=== PATIENT | female | born 1960 | race Caucasian/White ===

== ENCOUNTER 2017-09-22 13:28 | Inpatient (IN) | payer OTHER ==
[~2017-09-22] VITALS: Ht 172.7 cm; Wt 85.3 kg
--- OUTSIDE RECORDS SUMMARY | ~2017-09-22 | XMS | Encounter Summary ---
Demographics + + + | Address | [address] | | | [place] [address] | + + + | Home Phone | | + + + | Preferred Language | Unknown | + + + | Marital Status | | + + + | Zoroastrianism Affiliation | Unknown | + + + | Race | White | + + + | Ethnic Group | Not or | + + + Author + + + | Author | [facility] | + + + | Organization | [facility] | + + + | Address | Unknown | + + + | Phone | Unavailable | + + + Support +------+ + + + | Name | Relationship | Address | Phone | +------+ + + + ECON | [place] | | +------+ + + + Care Team Providers + +------+ + | Care Electronic Masking System Operator Name | Role | Phone | + [...] CH16[facility] | | | | | | [facility] | | | | | | and [facility], [address] | | | | | | [place], [place] | | | | | | [address] | | | | | | [phone] | | | +--------+ + + + [...] | | [facility] Mailcode CH5[facility] [address] | | | [place] [address] | + + + in this encounter Visit Diagnoses + + | Diagnosis | + + | Other specified dermatitis (CODE) | + + Admitting Diagnoses + + | Diagnosis | + + | Neoplasm of uncertain behavior of skin | + +
--- OUTSIDE RECORDS SUMMARY | ~2017-09-22 | XMS | Clinical Summary ---
Demographics + + + | Address | [address] | | | [place] [address] | + + + | Home Phone | | + + + | Preferred Language | Unknown | + + + | Marital Status | | + + + | Adventism Affiliation | Unknown | + + + | Race | White | + + + | Ethnic Group | Not or | + + + Author + + + | Author | [facility] | + + + | Organization | [facility] | + + + | Address | Unknown | + + + | Phone | Unavailable | + + + Support +------+ + + + | Name | Relationship | Address | Phone | +------+ + + + ECON | [place] | | +------+ + + + Care Team Providers + +------+ + | Care Crewman Main Battle Tank Name | Role | Phone | + +------+ + PP | Unavailable | + +------+ + Source Comments LEON is fully live on both [facility] Amb[facility] and [facility] InPatient.[facility] Allergies Not on File Current Medications [...] | | [facility] [address] | | | [place] [address] | + + + from Last 3 Months
[~2017-09-22 13:28] MED LIST: AMLODIPINE BESYL5 MG PO; DYAZIDE 37.5-251 EA PO; HYDROCHLOROTH12.5 MG PO; LOSARTAN POTASS25 MG PO; OMEPRAZOLE40 MG PO; TRANSDERM-SCOP1 EA TD
[2017-09-22] MEDS ORDERED: METOPROLOL SUCC50 MG PO (13:54)
[2017-09-22] MEDS ORDERED: AZITHROMYCIN500 MG PO (13:56)
--- OUTSIDE RECORDS SUMMARY | 2017-09-22 14:10 | XMS | Clinical Summary ---
Demographics + + + | Address | [address] | | | [place] [address] | + + + | Home Phone | | + + + | Preferred Language | Unknown | + + + | Marital Status | | + + + | Mormonism Affiliation | Unknown | + + + | Race | White | + + + | Ethnic Group | Not or | + + + Author + + + | Author | [facility] | + + + | Organization | [facility] | + + + | Address | Unknown | + + + | Phone | Unavailable | + + + Support +------+ + + + | Name | Relationship | Address | Phone | +------+ + + + ECON | [place] | | +------+ + + + Care Team Providers + +------+ + | Care Injection Mold Technician Name | Role | Phone | + +------+ + PP | Unavailable | + +------+ + Source Comments [facility] is fully live on both [facility] Amb[facility] and [facility] InPatient.[facility] Allergies Not on File Current Medications Not on file Active Problems Not on file Encounters +--------+ + + + + | Date | Type | Specialty | Care Team | Description | +--------+ + + + + | 09/12/ | Hospital | | | | | 2018 | Encounter | | | | +--------+ + + + + from Last 3 Months Social History + +-------+ +--------+------+ | Tobacco Use | Types | Packs/Day | Years | Date | | | | | Used | | + +-------+ +--------+------+ | Never Assessed | | | | | + +-------+ +--------+------+ + + + | Sex Assigned at | Date Recorded | | | | + + + | Not on file | | + + + Plan of Treatment + + + + + | Health Maintenance | Due Date | Last Done | Comments | + + + + + | INFLUENZA VACCINE | | | | | (FLU SHOT) | 7 | | | + + + + + Results DERM PATHOLOGY (09/12/2017) + + + + | Component | Value | Ref Range | + + + + | DERMATOPATHOLOGY(WET | SOURCE OF SPECIMEN:A Rt. knee, punch | | | MNT) | biopsy CLINICAL DESCRIPTION:3mo hx | | | | of erythematous plaque w/ satellite papules | | | | and pustules, initiallyKOH+ no response to | | | | 2 mos oral terbinafine; r/o tinea | | | | incognito vs. other. GROSS | | | | DESCRIPTION:Received in formalin is a | | | | specimen labeled Jonny Ding:A: | | | | Specimen is labeled "Rt knee" and consists | | | | of a 4mm punch of red-tanskin, cut to a | | | | depth of 3mm. The surgical margin is inked | | | | blue; the tissueis bisected; and entirely | | | | submitted in cassette A1. | | | | MICROSCOPIC DESCRIPTION:There is | | | | parakeratosis overlying a nodular to | | | | diffuse infiltrate oflymphocytes, | | | | neutrophils, and histiocytes, with | | | | peripheral plasma cells.There is associated | | | | fibrosis. Special stains (PAS and Karly) | | | | are negativefor fungal and acid fast | | | | organisms. DIAGNOSIS:NODULAR | | | | SUPPURATIVE AND GRANULOMATOUS | | | | DERMATITIS. NOTE: While not | | | | specific, the pattern is typical of that | | | | seen in eitherconventional RUPTURED | | | | SUPPURATIVE FOLLICULITIS, or | | | | DERMATOPHYTICFOLLICULITIS, despite no | | | | organisms appreciated with special stains | | | | (PAS wasrepeatedly negative). If clinical | | | | suspicion remains, correlation withculture | | | | studies may be beneficial. | | | | [id number] My electronic | | | | signature indicates that I have personally | | | | reviewed alldiagnostic slides, the gross | | | | and/or microscopic portion of thisreport | | | | and formulated the final diagnosis. | | | | Electronically signed by: Jaylon Bentley | | | | M.D.PathologistDate Completed: | | | | 09/19/2017 6:09PM | | + + + + + + + | Specimen | Performing Laboratory | + + + | | [facility] [address] | | | [place] [address] | + + + from Last 3 Months
--- OUTSIDE RECORDS SUMMARY | 2017-09-22 14:10 | XMS | Encounter Summary ---
Demographics + + + | Address | [address] | | | [place] [address] | + + + | Home Phone | | + + + | Preferred Language | Unknown | + + + | Marital Status | | + + + | Anabaptism Affiliation | Unknown | + + + | Race | White | + + + | Ethnic Group | Not or | + + + Author + + + | Author | [facility] | + + + | Organization | [facility] | + + + | Address | Unknown | + + + | Phone | Unavailable | + + + Support +------+ + + + | Name | Relationship | Address | Phone | +------+ + + + ECON | [place] | | +------+ + + + Care Team Providers + +------+ + | Care Civil Service Worker Name | Role | Phone | + +------+ + PCP | Unavailable | + +------+ + Encounter Details +--------+ + + + + | Date | Type | Department | Care Team | Description | +--------+ + + + + | 09/12/ | Hospital | Dermatopathology | | | | 2018 | Encounter | [address] | | | | | | Mail Code: CH16D | | | | | | [facility] | | | | | | and [facility], [address] | | | | | | [place], [place] | | | | | | [address] | | | | | | [phone] | | | +--------+ + + + + Social History + +-------+ +--------+------+ | Tobacco [...] on file | | + + + as of this encounter Plan of Treatment Not on fileas of this encounter Results DERM PATHOLOGY (09/12/2017) + + + [...] may be beneficial. | | | | [id number] My electronic | | | | signature indicates that I have personally | | | | reviewed alldiagnostic slides, the gross | | | | and/or microscopic portion of thisreport | | | | and formulated the final diagnosis. | | | | Electronically signed by: Jaylon Bentley | | | | AnirudhPathologistDate Completed: | | | | 09/19/2017 6:09PM | | + + + + + + + | Specimen | Performing Laboratory | + + + | | [facility] Mailcode [facility] [address] [facility] | | | [place] [address] | + + + in this encounter Visit Diagnoses + + | Diagnosis | + + | Other specified dermatitis (CODE) | + + Admitting Diagnoses + + | Diagnosis | + + | Neoplasm of uncertain behavior of skin | + +
--- OUTSIDE RECORDS SUMMARY | 2017-09-22 14:10 | XMS | Encounter Summary ---
Demographics + + + | Address | [address] | | | [place] [address] | + + + | Home Phone | | + + + | Preferred Language | Unknown | + + + | Marital Status | | + + + | Anabaptism Affiliation | Unknown | + + + | Race | White | + + + | Ethnic Group | Not or | + + + Author + + + | Author | [facility] | + + + | Organization | [facility] | + + + | Address | Unknown | + + + | Phone | Unavailable | + + + Support +------+ + + + | Name | Relationship | Address | Phone | +------+ + + + ECON | [place] | | +------+ + + + Care Team Providers + +------+ + | Care Auto Body Service Mechanic Name | Role | Phone | + [...] CH16D | | | | | | [facility] | | | | | | and [facility], [address] | | | | | | [place], [place] | | | | | | [address] | | | | | | [phone] | | | +--------+ + + + [...] | | [facility] Mailcode CH5D [address] [facility] | | | [place] [address] | + + + in this encounter Visit Diagnoses + + | Diagnosis | + + | Other specified dermatitis (CODE) | + + Admitting Diagnoses + + | Diagnosis | + + | Neoplasm of uncertain behavior of skin | + +
--- OUTSIDE RECORDS SUMMARY | 2017-09-22 14:10 | XMS | Clinical Summary ---
Demographics + + + | Address | [address] | | | [place] [address] | + + + | Home Phone | | + + + | Preferred Language | Unknown | + + + | Marital Status | | + + + | Pentecostal Affiliation | Unknown | + + + | Race | White | + + + | Ethnic Group | Not or | + + + Author + + + | Author | [facility] | + + + | Organization | [facility] | + + + | Address | Unknown | + + + | Phone | Unavailable | + + + Support +------+ + + + | Name | Relationship | Address | Phone | +------+ + + + ECON | [place] | | +------+ + + + Care Team Providers + +------+ + | Care Roller Bearing Inspector Name | Role | Phone | + +------+ + PP | Unavailable | + +------+ + Source Comments LEON is fully live on both [facility] and [facility] InPatient.[facility] Allergies Not on File Current [...] | | [facility] [address] [facility] [address] | | | [place] [address] | + + + from Last 3 Months
--- NOTE | 2017-09-22 22:32 | NUR ---
PT ARRIVED TO ROOM 127 AT 2014. ORIENTED TO ROOM AND CALL LIGHT. PT REPORTS FEELING UNWELL ON MONDAY. REPORTS MALAISE, TEMP UP TO 101F, CHILLS, OCCASIONAL NON-PRODUCTIVE COUGH. IN TO SEE PCP AND ABX STARTED ON . PT STOPPED HTN MEDICATIONS ON BP LOW. REPORTS LAST URINE OUTPUT PRIOR TO HOSPITAL ON , ALTHOUGH PT NOT SURE. PT UP TO BR TO VOID 300ML. SLIGHTLY DIZZY AND WEAK WITH AMBULATION.
--- NOTE | 2017-09-23 03:36 | NUR ---
PT UP TO AMBULATE TO BR WITHOUT DIZZINESS. NO FURTHER NEEDS.
--- NOTE | 2017-09-23 08:30 | NUR ---
[facility]. HERE TO DO ABD ULTRASOUND
--- NOTE | 2017-09-23 10:33 | NUR ---
VISITING WITH FAMILY MEMBERS. DENIES PROBLEMS.
--- NOTE | 2017-09-23 11:10 | NUR ---
DR. DIMAS HERE TO SEE PATIENT. ORDERS RECIEVED TO DECREASE IVF TO 65 ML/HR. THIS DONE.
--- NOTE | 2017-09-23 13:14 | NUR ---
HAS BEEN UP TO BR SEVERAL TIMES THIS MORNING TO VOID. DENIES PAINFUL URINATION. INC OF SMALL AMOUNT LIQ STOOL. SPONGE BATH GIVEN WHILE UP. IS STABLE ON FEET.
--- NOTE | 2017-09-23 14:38 | NUR ---
HAS OCC NONPRODUCTIVE COUGH.
--- NOTE | 2017-09-23 17:55 | NUR ---
JUDIE CHEN AWARE OF FREQ STOOLS. ORDERS RECIEVED TO SEND STOOL TO LAB.
--- NOTE | 2017-09-24 02:17 | NUR ---
PT UP TO VOID 600ML AT 2230. CURRENTLY ASLEEP, RR EVEN AND UNLABORED.
--- NOTE | 2017-09-24 03:45 | NUR ---
PT ASLEEP WHEN ENTERED ROOM. DENIES NEEDS.
--- NOTE | 2017-09-24 05:51 | NUR ---
PT UP TO BR TO VOID. NO FURTHER NEEDS.
--- NOTE | 2017-09-24 06:21 | NUR ---
PT HAD 100ML GELATENOUS BROWN/ORANGE STOOL. SAMPLE SENT TO LAB.
--- NOTE | 2017-09-24 08:42 | NUR ---
PATIENT USES CALL LIGHT AND STATES SHE IS AWAKE AND READY TO GET UP FOR THE DAY. PT DENIES PAIN. PT STATES SHE IS FEELING MUCH BETTER OVERALL AND FEELS READY TO D/C HOME. ASSESSMENT COMPLETE AT THIS TIME. IVF CONTINUE AT 65 ML/HR. BREAKFAST ORDERED FOR PATIENT. PT INTO CHAIR FOR BREAKFAST. VITALS STABLE. PT DENIES PAIN. CONTINUE TO MONITOR.
--- NOTE | 2017-09-24 09:28 | NUR ---
PATIENT BACK TO BED AFTER BREAKFAST AT THIS TIME. PT HAS AMBULATED INTO BATHROOM WELL. CALL LIGHT WITHIN REACH.
--- NOTE | 2017-09-24 12:06 | NUR ---
REPORT GIVEN TO [place] AYALA. PT MOVED TO ROOM 125. ALL PATIENT BELONGINGS TAKEN WITH PATIENT. PT AMBULATED OVER TO ROOM AND TOLERATED WELL.
--- NOTE | 2017-09-24 12:39 | NUR ---
PT RECEIVED FROM CCU, REPORT OBTAINED FROM RN. PT RESTING IN BED. PT ON ROOM AIR, LUNG SOUNDS CLEAR. PT COMPLAINT OF FEELING TIRED OVERALL, DENIES DIZZINESS. PT DENIES PAIN. BOWEL TONES ACTIVE, COMPLAINT OF MINOR NAUSEA, DENIES NEED FOR ANTIEMETIC, PT ENOCURAGED TO EAT SMALL MEALS. CMS INTACT, WITHOUT EDEMA. SLAINE LOCKED FOR SHOWER, IV PATENT. MD TO BEDSIDE TO EVALUATE PT, PLAN TO CONTINUE WITH IV FLUIDS AND CHECK AM LABS. PT DENIES OTHER NEEDS AT THIS TIME.
--- NOTE | 2017-09-24 12:44 | NUR ---
SET PT UP FOR A SHOWER. PT WAS INFORMED TO CALL WHEN DONE. PT INFORMED WHERE BATHROOM CALL LIGHTS ARE LOCATED.
--- NOTE | 2017-09-24 16:36 | NUR ---
PT ASSISTED TO WALK IN PRYOR. ASSISTED BACK TO BED. PT DENIES PAIN. PT VOIDING QS. PROVIDED FRESH WATER. PT DENIES OTHER NEEDS AT THIS TIME.
--- NOTE | 2017-09-24 17:37 | NUR ---
PT RECEIVED FROM CCU. PT ON ROOM AIR, LUNG SOUND CLEAR, OCCASIONAL COUGH. IV FLUIDS INFUSING LR AT 65 ML/HR. PT TOLERATING CARDIAC DIET, POOR APPETITE, ENCOURAGED SMALL FREQUENT MEALS. PT INDEPENDENT IN ROOM. VOIDING QS. PT WITH LOOSE STOOL, BARRIER CREAM AND WIPES. PT AMBULATED IN PRYOR. POSSIBLE DISCHARGE TOMORROW, PENDING AM LABS.
--- NOTE | 2017-09-24 18:05 | NUR ---
ORTHOSTATIC VITALS COMPLETED, PT DENIES LIGHT HEADEDNESS/DIZZINESS. MD NOTIFIED OF RESULTS, NO NEW ORDERS AT THIS ITTN.
--- NOTE | 2017-09-24 19:47 | NUR ---
medicated wtih one tylenol 500mg po h/a, ice given too, coop with assessment
--- NOTE | 2017-09-25 04:38 | NUR ---
Pt has slept all this shift, awaken easily, no distress. Was medicated x1 with Tylenol 500mg po and ice applied to back of head for pain. Effective, pt independent, no c/o n/v. IVF infusing w/o problems. Voiding QS.
--- NOTE | 2017-09-25 08:40 | NUR ---
PT AWAKE SITTING UP IN BED. DAUGHTER SLEEPING AT BEDSIDE. NO COMPLAINTS THIS MORNING. CURIOUS OF WHEN SHE WILL BE DISCHARGED. VSS. METOPROLOL GIVEN. IVF INFUSING.
[2017-09-25] MEDS ORDERED: NORVASC5 MG PO (10:14)
--- NOTE | 2017-09-25 10:43 | NUR ---
THIS MORNING I GOT PATIENT SOME NEW ICE WATER. ASKED HER ABOUT A SHOWER SHE SAID SHE WOULD TAKE ONE IF SHE DOESN'T GO HOME TODAY.
== END 2017-09-25 10:55 | disposition home or self-care (01) | DRG 683 ==
LOC: ED 13:28 → CCU 19:21 → MS 09-24 12:00
PROVIDERS: ADMIT Internal Medicine
DX: I12.9 Hypertensive chronic kidney disease with stage 1 through stage 4 chronic kidney disease, or unspecified chronic kidney disease (principal); N17.9 Acute kidney failure, unspecified; D61.818 Other pancytopenia; E87.6 Hypokalemia; N18.3 Chronic kidney disease, stage 3 (moderate); G89.29 Other chronic pain; R10.11 Right upper quadrant pain; J11.1 Influenza due to unidentified influenza virus with other respiratory manifestations
CPT/HCPCS: 36415; 71045; 76700; 80053; 80069; 81001; 82565; 82570; 82607; 82728; 82746; 83540; 83735; 84300; 84466; 84520; 84540; 85025; 85045; 85651; 87045; 87046; 87205; 87493; 96361; 96374; 99284; J1650; J2405; J7030; J7120

== ENCOUNTER 2017-10-20 09:27 | Emergency (ER) | payer OTHER ==
[~2017-10-20] VITALS: Ht 172.7 cm; Wt 81.7 kg
[~2017-10-20 09:27] MED LIST changes: +AZITHROMYCIN500 MG PO; +METOPROLOL SUCC50 MG PO; +NORVASC5 MG PO
[2017-10-20] MEDS ORDERED: LOSARTAN POTASS50 MG PO (09:55)
[2017-10-20] MEDS ORDERED: HYDROCHLOROTHIA25 MG PO (12:04)
--- OUTSIDE RECORDS SUMMARY | 2017-10-20 12:29 | XMS | Encounter Summary ---
Demographics + + + | Address | [address] | | | [place] [address] | + + + | Home Phone | | + + + | Preferred Language | Unknown | + + + | Marital Status | | + + + | Scientology Affiliation | Unknown | + + + | Race | White | + + + | Ethnic Group | Not or | + + + Author + + + | Author | [facility] | + + + | Organization | [facility] | + + + | Address | Unknown | + + + | Phone | Unavailable | + + + Support +------+ + + + | Name | Relationship | Address | Phone | +------+ + + + ECON | [place] | | +------+ + + + Care Team Providers + +------+ + | Care Salt Maker Name | Role | Phone | + [...] CH[address] | | | | | | [facility] | | | | | | and [facility], [address] | | | | | | [place], [place] | | | | | | [address] | | | | | | [phone] | | | +--------+ + + + [...] | | [facility] Mailcode CH5D [address] | | | [place] [address] | + + + in this encounter Visit Diagnoses + + | Diagnosis | + + | Other specified dermatitis (CODE) | + + Admitting Diagnoses + + | Diagnosis | + + | Neoplasm of uncertain behavior of skin | + +
--- OUTSIDE RECORDS SUMMARY | 2017-10-20 12:29 | XMS | Encounter Summary ---
Demographics + + + | Address | [address] | | | [place] [address] | + + + | Home Phone | | + + + | Preferred Language | Unknown | + + + | Marital Status | | + + + | Buddhism Affiliation | Unknown | + + + | Race | White | + + + | Ethnic Group | Not or | + + + Author + + + | Author | [facility] | + + + | Organization | [facility] | + + + | Address | Unknown | + + + | Phone | Unavailable | + + + Support +------+ + + + | Name | Relationship | Address | Phone | +------+ + + + ECON | [place] | | +------+ + + + Care Team Providers + +------+ + | Care Tank Charger Name | Role | Phone | + [...] CH16D | | | | | | [facility] | | | | | | and [facility], [address]th | | | | | | [place], [place] | | | | | | [address] | | | | | | [phone] | | | +--------+ + + + [...] | | [facility] Mailcode CH5D [address] [facility] [address] | | | [place] [address] | + + + in this encounter Visit Diagnoses + + | Diagnosis | + + | Other specified dermatitis (CODE) | + + Admitting Diagnoses + + | Diagnosis | + + | Neoplasm of uncertain behavior of skin | + +
--- OUTSIDE RECORDS SUMMARY | 2017-10-20 12:29 | XMS | Clinical Summary ---
Demographics + + + | Address | [address] | | | [place] [address] | + + + | Home Phone | | + + + | Preferred Language | Unknown | + + + | Marital Status | | + + + | Hindu Affiliation | Unknown | + + + | Race | White | + + + | Ethnic Group | Not or | + + + Author + + + | Author | [facility] | + + + | Organization | [facility] | + + + | Address | Unknown | + + + | Phone | Unavailable | + + + Support +------+ + + + | Name | Relationship | Address | Phone | +------+ + + + ECON | [place] | | +------+ + + + Care Team Providers + +------+ + | Care Human Resources Hr Generalist Name | Role | Phone | + +------+ + PP | Unavailable | + +------+ + Source Comments LEON is fully live on both [facility] Ambulatory and [facility] InPatient.[facility] Allergies Not on File Current Medications [...] | | [facility] CH[address] [facility] [address] | | | [place] [address] | + + + from Last 3 Months
--- OUTSIDE RECORDS SUMMARY | 2017-10-20 12:29 | XMS | Clinical Summary ---
Demographics + + + | Address | [address] | | | [place] [address] | + + + | Home Phone | | + + + | Preferred Language | Unknown | + + + | Marital Status | | + + + | Synagogue Affiliation | Unknown | + + + | Race | White | + + + | Ethnic Group | Not or | + + + Author + + + | Author | [facility] | + + + | Organization | [facility] | + + + | Address | Unknown | + + + | Phone | Unavailable | + + + Support +------+ + + + | Name | Relationship | Address | Phone | +------+ + + + ECON | [place] | | +------+ + + + Care Team Providers + +------+ + | Care Medical Billing Service Name | Role | Phone | + +------+ + PP | Unavailable | + +------+ + Source Comments LO[facility] is fully live on both [facility] Ambulatory and [facility] InPatient.[facility] Allergies Not on File Current Medications Not [...] | | [facility] [facility] [address] | | | [place] [address] | + + + from Last 3 Months
--- NOTE | 2017-10-20 20:28 | EKG ---
[facility] [address] [place], [place] [address] Signed Normal sinus rhythm Normal ECG No previous ECGs available Confirmed by HENRI LI MD ([id number]) on 10/20/2017 8:28:14 PM Electronically Signed By: HENRI LI MD 10/20/172027 PATIENT NAME: MARIA ESTHER RANDSTACY Pineda Electrocardiogram DATE OF : 64 PHYSICIAN: HENRI LI MD REPORT #: [id number] REPORT IS CONFIDENTIAL AND NOT TO BE RELEASED WITHOUT AUTHORIZATION
== END 2017-10-20 14:15 | disposition home or self-care (01) ==
LOC: ED 09:27
DX: I10 Essential (primary) hypertension (principal); Z88.8 Allergy status to other drugs, medicaments and biological substances; Z79.899 Other long term (current) drug therapy
CPT/HCPCS: 36415; 80053; 81001; 84484; 85025; 93005; 93010; 99284

== ENCOUNTER 2018-05-19 15:38 | Emergency (ER) | payer OTHER ==
[~2018-05-19] VITALS: Ht 172.7 cm; Wt 84.4 kg
--- OUTSIDE RECORDS SUMMARY | ~2018-05-19 | XMS | Encounter Summary ---
Demographics + + + | Address | [address] | | | [place] [address] | + + + | Home Phone | | + + + | Preferred Language | Unknown | + + + | Marital Status | | + + + | Congregational Affiliation | Unknown | + + + | Race | Unknown | + + + | Ethnic Group | Unknown | + + + Author + + + | Author | [facility] | | | and [place] | + + + | Organization | [facility] | | | and [place] | + + + | Address | Unknown | + + + | Phone | Unavailable | + + + Support + + +---------+ + | Name | Relationship | Address | Phone | + + +---------+ + | Ry Ding | ECON | Unknown | | + + +---------+ + Care Team Providers + +------+ + | Care Orthopaedic Doctor Name | Role | Phone | + +------+ + | Guy Lee | PCP | | | MD | | | + +------+ + Reason for Visit + + + | Reason | Comments | + + + | Lab Order | Patient is due for labs prior to appointment | + + + Encounter Details +--------+ + + + + | Date | Type | Department | Care Team | Description | +--------+ + + + + | 05/17/ | Telephone | [facility] | Jude Rogers, | Lab Order (Patient | | 2018 | | CARDIOLOGY [address] | is due for labs | | | | [place], | [place], | prior to appointment | | | | [place] [address] | [place] [address] | ) | | | | [phone] | [phone] | | | | | | | | +--------+ + + + + Social History + +-------+ +--------+------+ | Tobacco Use | Types | Packs/Day | Years | Date | | | | | Used | | + +-------+ +--------+------+ | Never Smoker | | | | | + +-------+ +--------+------+ + +---+---+---+ | Smokeless Tobacco: | | | | | Never Used | | | | + +---+---+---+ + + +---------+ + | Alcohol Use | Drinks/We | oz/Week | Comments | | | ek | | | + + +---------+ + | No | 0 | 0.0 | | | | Standard | | | | | drinks or | | | | | | | | | | equivalen | | | | | t | | | + + +---------+ + + + + | Sex Assigned at | Date Recorded | | | | + + + | Not on file | | + + + as of this encounter Plan of Treatment +--------+---------+ + + + | Date | Type | Specialty | Care Team | Description | +--------+---------+ + + + | 06/01/ | Office | Cardiology | Mickyjmjarret Shefalimicky, | | | 2017 | Visit | | MD Brianna Portillo | | | | | | [place], | | | | | | [place] [address] | | | | | | [phone] | | | | | | | | +--------+---------+ + + + + +--------+ + + | Name | Priori | Associated Diagnoses | Order Schedule | | | ty | | | + +--------+ + + | CBC with Differential | Routin | Chest pain, | 1 Occurrences | | | e | unspecified type | starting 05/17/2018 | | | | | until 05/18/2019 | + +--------+ + + | Comprehensive Metabolic Panel | Routin | Chest pain, | 1 Occurrences | | | e | unspecified type | starting 05/17/2018 | | | | | until 05/18/2019 | + +--------+ + + as of this encounter Visit Diagnoses + + | Diagnosis | + + | Chest pain, unspecified type - Primary | + +"
--- OUTSIDE RECORDS SUMMARY | ~2018-05-19 | XMS | Clinical Summary ---
Demographics + + + | Address | [address] | | | [place] [address] | + + + | Home Phone | | + + + | Preferred Language | Unknown | + + + | Marital Status | | + + + | Taoism Affiliation | Unknown | + + + | Race | White | + + + | Ethnic Group | Not or | + + + Author + + + | Author | [facility] | + + + | Organization | [facility] | + + + | Address | Unknown | + + + | Phone | Unavailable | + + + Support + + + + + | Name | Relationship | Address | Phone | + + + + + | JESSICA RAND | OFELIA | [place] | | + + + + + Care Team Providers + +------+ + | Care Stonemason Name | Role | Phone | + +------+ + PP | Unavailable | + +------+ + Source Comments LEON is fully live on both [facility] Ambulatory and [facility] InPatient.[facility] Allergies Not on File Current Medications Not on file Active Problems Not on file Social History + +-------+ +--------+------+ | Tobacco [...] | | | | (FLU SHOT) | 8 | | | + + + + + Results Not on filefrom Last 3 Months Insurance +-------+--------+ +------+ + + | Payer | Benefi | Subscriber | Type | Phone | Address | | | t Plan | ID | | | | | | / | | | | | | | Group | | | | | +-------+--------+ +------+ + + | MODA | MODA | xxxxxxxxx | PPO | [phone]- | [address] [address] | | | [place] | | | [address] | [place] [address] | | | [place] | | | | | +-------+--------+ +------+ + + + +--------+ +--------+ + + | Guarantor Name | Accoun | Relation to | Date | Phone | Billing Address | | | t Type | Patient | of | | | | | | | | | | + +--------+ +--------+ + + | JONNY RAND | Person | Self [birth year] | Home: | [address] | | | al/Fam | | 1960 | [phone] | [place] [address] | | | augie | | | [phone] | | + +--------+ +--------+ + +"
--- OUTSIDE RECORDS SUMMARY | ~2018-05-19 | XMS | Clinical Summary ---
Demographics + + + | Address | [address] | | | [place] [address] | + + + | Home Phone | | + + + | Preferred Language | Unknown | + + + | Marital Status | | + + + | Taoist Affiliation | Unknown | + + + | Race | White | + + + | Ethnic Group | Not or | + + + Author + + + | Author | [facility] | + + + | Organization | [facility] | + + + | [...] Team Providers + +------+ + | Care Industrial Yard Brake Coupler Name | Role | Phone | + +------+ + PP | Unavailable | + +------+ + Source Comments LEON is fully live on both [facility] Ambulatory and [facility] InPatient.[facility] Allergies Not on File Current Medications [...] [phone] | PPO | [phone]- | [address] [phone] | | | [place] | | | [phone] | [place] [address] | | | [place] | | | [...] Self | [birth year] | Home: | [address] | | | al/Fam | | 1960 | [phone] | [place] [address] | | | augie | | | [phone] | | + +--------+ +--------+ + +"
--- OUTSIDE RECORDS SUMMARY | ~2018-05-19 | XMS | Encounter Summary ---
Demographics + + + | Address | [address] | | | [place] [address] | + + + | Home Phone | | + + + | Preferred Language | Unknown | + + + | Marital Status | | + + + | Episcopal Affiliation | Unknown | + + + | Race | Unknown | + + + | Ethnic Group | Unknown | + + + Author + + + | Author | [facility] | | | and [place] | + + + | Organization | [facility] | | | and [place] | [...] Team Providers + +------+ + | Care Report Clerk Name | Role | Phone | + +------+ + | Guy Lee | PCP | | | MD | | | + +------+ + Reason for Visit + + + | Reason | Comments | + + + | Lab Order | | + + + Encounter Details +--------+ + + + + | Date | Type | Department | Care Team | Description | +--------+ + + + + | 05/09/ | Telephone | [facility] [place] | Jude Rogers, | Lab Order | | 2017 | | CARDIOLOGY [address] | MD [address] | | | | | [place], | [place], | | | | | [place] [address] | [place] [address] | | | | | [phone] | [phone] | | | | | | | [...] | 06/01/ | Office | Cardiology | Jude Rogers, | | | 2018 | Visit | | MD [address] | | | | | | [place], | | | | | | [place] [address] | | | | | | [phone] | | | | | | | | +--------+---------+ + + + as of this encounter Visit Diagnoses Not on filein this encounter"
--- OUTSIDE RECORDS SUMMARY | ~2018-05-19 | XMS | Encounter Summary ---
Demographics + + + | Address | [address] | | | [place] [address] | + + + | Home Phone | | + + + | Preferred Language | Unknown | + + + | Marital Status | | + + + | Sikh Affiliation | Unknown | + + + | Race | Unknown | + + + | Ethnic Group | Unknown | + + + Author + + + | Author | [facility] | | | and [place] | + + + | Organization | [facility] | | | and [place] [...] Team Providers + +------+ + | Care Tapeman Name | Role | Phone | + +------+ + | uGy Lee | PCP | | | MD | | | + +------+ + Reason for Visit + + + | Reason | Comments | + + + | Medication Refill | | + + + Encounter Details +--------+--------+ + + + | Date | Type | Department | Care Team | Description | +--------+--------+ + + + | 05/02/ | Refill | [facility] [place] | Jude Rogers, | Medication Refill | | 2017 | | CARDIOLOGY [address] | MD [address] [place] | | | | | [place], | [place], | | | | | [place] [address] | [place] [address] | | | | | [phone] | [phone] | | | | | | | | +--------+--------+ + + + Social History + +-------+ [...] Cardiology | Jude Rogers, | | | 2017 | Visit | | [address] | | | | | | [place], | | | | | | [place] [address] | | | | | | [phone] | | | | | | | | +--------+---------+ + + + as of this encounter Visit Diagnoses + + | Diagnosis | + + | Essential hypertension with goal blood pressure less than 130/80 | + +"
--- OUTSIDE RECORDS SUMMARY | ~2018-05-19 | XMS | Clinical Summary ---
Demographics + + + | Address | [address] | | | [place] [address] | + + + | Home Phone | | + + + | Preferred Language | Unknown | + + + | Marital Status | | + + + | Confucianism Affiliation | Unknown | + + + | Race | Unknown | + + + | Ethnic Group | Unknown | + + + Author + + + | Author | [facility] | | | and [place] | + + + | Organization | [facility] | | | and [place] | [...] Team Providers + +------+ + | Care Mop Worker Name | Role | Phone | + +------+ + | Guy Lee | PP | | | MD | | | + +------+ + Allergies + + + + + + | Active Allergy | Reactions | Severity | Noted | Comments | | | | | Date | | + + + + + + | Amlodipine | Rash | Low | 10/23/19 | Ankles swell | | | | | 18 | | + + + + + + Current Medications + + +--------+---------+------+------+-------+ | Prescription | Sig. | Disp. | Refills | Star | End | Statu | | | | | | t | Date | s | | | | | | Date | | | + + +--------+---------+------+------+-------+ | aspirin 81 MG | Take 1 tablet by | | | 03/2 | | Activ | | tablet | mouth Daily. | | | 8/20 | | e | | | | | | 18 | | | + + +--------+---------+------+------+-------+ | atorvaSTATin | Take 1 tablet by | 30 | 5 | 03/2 | | Activ | | (LIPITOR) 20 mg | mouth nightly. | tablet | | 8/20 | | e | | tablet | | | | 18 | | | + + +--------+---------+------+------+-------+ | carvedilol (COREG) | Take 1 tablet by | 60 | 5 | 08/2 | | Activ | | 25 mg | mouth 2 times daily | tablet | | 9/20 | | e | | tabletIndications: | (with breakfast & | | | 18 | | | | Essential | dinner). | | | | | | | hypertension with | | | | | | | | goal blood pressure | | | | | | | | less than 130/80 | | | | | | | + + +--------+---------+------+------+-------+ | | Take 1 tablet by | 30 | 5 | 08/2 | | Activ | | hydroCHLOROthiazide | mouth Daily. | tablet | | 9/20 | | e | | 25 mg tablet | | | | 18 | | | + + +--------+---------+------+------+-------+ | losartan (COZAAR) | take 1 tablet by | 30 | 5 | 08/2 | | Activ | | 100 MG tablet | mouth once daily | tablet | | 9/20 | | e | | | | | | 18 | | | + + +--------+---------+------+------+-------+ | carvedilol (COREG) | Take 1 tablet by | 60 | 5 | 03/0 | 08/2 | Disco | | 25 mg | mouth 2 times daily | tablet | | 03/23 | 05/24 | ntinu | | tabletIndications: | (with breakfast & | | | 18 | 18 | ed | | Essential | dinner). | | | | | | | hypertension with | | | | | | | | goal blood pressure | | | | | | | | less than 130/80 | | | | | | | + + +--------+---------+------+------+-------+ | losartan (COZAAR) | take 1 tablet by | 30 | 5 | 11/02 | 04/05 | Disco | | 100 MG tablet | mouth once daily | tablet | | 02/21 | 05/24 | ntinu | | | | | | 18 | 18 | ed | + + +--------+---------+------+------+-------+ | | Take 1 tablet by | 30 | 5 | / | 08 | Disco | | hydroCHLOROthiazide | mouth Daily. | tablet | | 02/21 | 05/24 | ntinu | | 25 mg tablet | | | | 18 | 18 | ed | + + +--------+---------+------+------+-------+ Active Problems + + + | Problem | Noted Date | + + + | Chest pain | 10/23/2017 | + + + | Special screening for malignant neoplasms, colon | 11/23/2016 | + + + | GERD (gastroesophageal reflux disease) | 11/23/2016 | + + + | Gastritis | 11/23/2016 | + + + | Hx of iron deficiency anemia | 11/23/2016 | + + + | CKD (chronic kidney disease), stage III | | + + + | Essential hypertension with goal blood pressure less than 130/80 | | + + + Encounters +--------+ + + + + | Date | Type | Specialty | Care Team | Description | +--------+ + + + + | 05/17/ | Telephone | | Jude Rogers, | Lab Order (Patient | | 2018 | | | MD | is due for labs | | | | | | prior to appointment | | | | | | ) | +--------+ + + + + | 05/09/ | Telephone | | Jude Rogers, | Lab Order | | 2017 | | | MD | | +--------+ + + + + | 05/02/ | Refill | | Jude Rogers, | Medication Refill | | 2017 | | | MD | | +--------+ + + + + from Last 3 Months Immunizations + + + + | Name | Dates Previously Given | Next Due | + + + + | INFLUENZA PF 20 Y [place] | 10/23/2017 | | | >,QUADRIVALENT | | | | RECOMBINANT | | | + + + + Family History + + +------+ + | Medical History | Relation | Name | Comments | + + +------+ + | Heart attack | Brother | #2 | | + + +------+ + | Obesity | Brother | #1 | | + + +------+ + | Hypertension | Mother | | | + + +------+ + + +------+ + + | Relation | Name | Status | Comments | + +------+ + + | Brother | #2 | | | | | | (Age | | | | | 48) | | + +------+ + + | Brother | #1 | | | + +------+ + + | Mother | | | | + +------+ + + Social History + +-------+ +--------+------+ [...] on file | | + + + Last Filed Vital Signs + + + + | Vital Sign | Reading | Time Taken | + + + + | Blood Pressure | 122/84 | 11/29/20171122 PDT | + + + + | Pulse | 64 | 11/29/20171122 PDT | + + + + | Temperature | 36.1 C (97 F) | 11/24/2016 0803 PDT | + + + + | Respiratory Rate | 16 | 11/29/20171122 PDT | + + + + | Oxygen Saturation | 93% | 11/24/20161029 PDT | + + + + | Inhaled Oxygen | - | - | | Concentration | | | + + + + | Weight | 84.4 kg (186 lb 1.1 | 11/29/20171122 PDT | | | oz) | | + + + + | Height | 172.7 cm (5' 8") | 11/29/20171122 PDT | + + + + | Body Mass Index | 28.29 | 11/29/2017 1123 PDT | + + + + Plan of Treatment +--------+---------+ + + + | Date | Type | Specialty | Care Team | Description | +--------+---------+ + + + | 06/01/ | Office | | Jude Rogers, | | | 2017 | Visit | | MD [address] | | | | | | [place], | | | | | | [place] [address] | | | | | | [phone] | | | | | | | | +--------+---------+ + + + + + + + + | Health Maintenance | Due Date | Last Done | Comments | + + + + + | Hepatitis C | | | | | Screening | 2 | | | + + + + + | Vaccine: | | | | | Dtap/Tdap/Td (1 - | 1 | | | | Tdap) | | | | + + + + + | BREAST CANCER | | | | | SCREENING (MAMM Q2 | 2 | | | | YEARS 50-74) | | | | + + + + + | Vaccine: Influenza | | 10/23/2017 | | | (#1) | 8 | | | + + + + + | Colorectal Cancer | | 11/24/2016, 11/24/2016 | | | Screening | 7 | | | | (Colonoscopy) | | | | + + + + [...] + + | MODA | MODA | [id number] | PPO | [phone] [address] [address] | | | HEALTH | | | [address] | [place] [address] | | | | | | | | | | [place] | | | | | | | [place] | | | | | +-------+--------+ +------+ + + + +--------+ +--------+ + + | Guarantor Name | Accoun | Relation to | Date | Phone | Billing Address | | | t Type | Patient | of | | | | | | | | | | + +--------+ +--------+ + + | JONNY DING | Person | Self [birth year] | Work: | [address] | | [place] | al/[place]uan | | 1959 | [phone] | [place] [address] | | | augie | | | [address]: | | | | | | | | | | | | | | [phone] | | | | | | | [phone] | | + +--------+ +--------+ + +
--- OUTSIDE RECORDS SUMMARY | ~2018-05-19 | XMS | Encounter Summary ---
Demographics + + + | Address | [address] | | | [place] [address] | + + + | Home Phone | | + + + | Preferred Language | Unknown | + + + | Marital Status | | + + + | Mandaen Affiliation | Unknown | + + + | Race | Unknown | + + + | Ethnic Group | Unknown | + + + Author + + + | Author | [facility] | | | and [place] | + + + | Organization | [facility] | | | and [...] Team Providers + +------+ + | Care Ancillary Services Manager Therapy Name | Role | Phone | + [...] + | 05/17/ | Telephone | [facility] | Jude Rogers, | Lab Order (Patient | | 2018 | | CARDIOLOGY [address] | [address] [place] | is due for labs | | | | [place], | [place], | prior to appointment | | | | [place] [address] | [place] [address] | ) | | | | [phone] | [phone] | | | | | | | [...] [place], | | | | | | [place] [address] | | | | | | [phone] | | | | | | | [...]
--- OUTSIDE RECORDS SUMMARY | ~2018-05-19 | XMS | Encounter Summary ---
Demographics + + + | Address | [address] | | | [place] [address] | + + + | Home Phone | | + + + | Preferred Language | Unknown | + + + | Marital Status | | + + + | Scientology Affiliation | Unknown | + + + | Race | Unknown | + + + | Ethnic Group | Unknown | + + + Author + + + | Author | [facility] | | | and [place] | + + + | Organization | [facility] | | | and [place] [...] Team Providers + +------+ + | Care Janitor Supervisor Name | Role | Phone | + [...] | 05/09/ | Telephone | [facility] [place] | Jude Rogers, | Lab Order | | 2017 | | CARDIOLOGY [address] | MD [address] [place] | | | | | [place], | [place], | | | | | [place] [address] | [place] [address] | | | | | [phone] | [phone] | | | | | | | [...] [place], | | | | | | [place] [address] | | | | | | [phone] | | | | | | | | +--------+---------+ + + + as of this encounter Visit Diagnoses Not on filein this encounter"
--- OUTSIDE RECORDS SUMMARY | ~2018-05-19 | XMS | Clinical Summary ---
Demographics + + + | Address | [address] | | | [place] [address] | + + + | Home Phone | | + + + | Preferred Language | Unknown | + + + | Marital Status | | + + + | Samaritan Affiliation | Unknown | + + + | Race | Unknown | + + + | Ethnic Group | Unknown | + + + Author + + + | Author | [facility] | + + + | Organization | [facility] | + + + | Address | Unknown | + + + | Phone | Unavailable | + + + Support + + +---------+ + | Name | Relationship | Address | Phone | + + +---------+ + | Ry Ding | ECON | Unknown | | + + +---------+ + Care Team Providers + +------+ + | Care Addiction Therapist Name | Role | Phone | + +------+ + | Guy Lee MD | PP | | + +------+ + Allergies Not on File Current Medications Not [...] | + + + + + | Cervical Cancer | | | | | Screening (Pap) | 2 | | | + + + + + | Vaccine: Influenza | | | | | (#1) | 8 | | | + + + + + Results Not on filefrom Last 3 Months Insurance + +--------+ +------+-------+---------+ | Payer | Benefi | Subscriber | Type | Phone | Address | | | t Plan | ID | | | | | | / | | | | | | | Group | | | | | + +--------+ +------+-------+---------+ | [employer] | ODS | [id number] | | | | | | HEALTH | | | | | | | PLAN | | | | | + +--------+ +------+-------+---------+ + +--------+ +--------+ + + | Guarantor Name | Accoun | Relation to | Date | Phone | Billing Address | | | t Type | Patient | of | | | | | | | | | | + +--------+ +--------+ + + | JONNY DING | Person | Self [birth year] | Work: | [address] | | | al/[place]uan | | 1959 | [phone] | [place] | | | augie | | | [phone] Home: | [address] | | | | | | | | | | | | | [phone] | | | | | | | [phone] | | + +--------+ +--------+ + +"
--- OUTSIDE RECORDS SUMMARY | ~2018-05-19 | XMS | Clinical Summary ---
Demographics + + + | Address | [address] | | | [place] [address] | + + + | Home Phone | | + + + | Preferred Language | Unknown | + + + | Marital Status | | + + + | Lutheran Affiliation | Unknown | + + + | Race | Unknown | + + + | Ethnic Group | Unknown | + + + Author + + + | Author | [facility] | | | and [place] | + + + | Organization | [facility] | | | and [place] | + [...] Team Providers + +------+ + | Care Final Finisher Forging Dies Name | Role | Phone | + [...] [place], | | | | | | [place] [address] | | | | | | [phone] | | | | | | | [...] + + | MODA | MODA | [id number] | PPO | [phone] [address] [address] | | | HEALTH | | | [phone] | [place] [address] | | | | | | | [...] [place] | al/Huan | | 1959 | [phone] | [place] [address] | | | augie | | | [address]: | | | | | | | | | | | | | | [phone] | | | | | | | [address] | | + +--------+ +--------+ + +
--- OUTSIDE RECORDS SUMMARY | ~2018-05-19 | XMS | Encounter Summary ---
Demographics + + + | Address | [address] | | | [place] [address] | + + + | Home Phone | | + + + | Preferred Language | Unknown | + + + | Marital Status | | + + + | Restorationist Affiliation | Unknown | + + + | Race | Unknown | + + + | Ethnic Group | Unknown | + + + Author + + + | Author | [facility] | | | and [place] | + + + | Organization | [facility] | | | and [...] Team Providers + +------+ + | Care Bag Filler Machine Operator Name | Role | Phone | [...] | CARDIOLOGY [address] | MD [address] [place] | | | | | [place], | [place], | | | | | [place] [address] | [place] [address] | | | | | [phone] | [phone] | | | | | | | [...] | 2017 | Visit | | [address] | | | | | | [place], | | | | | | [place] [address] | | | | | | [phone] | | | | | | | | +--------+---------+ + + + as of this encounter Visit Diagnoses + + | Diagnosis | + + | Essential hypertension with goal blood pressure less than 130/80 | + +"
--- OUTSIDE RECORDS SUMMARY | ~2018-05-19 | XMS | Clinical Summary ---
Demographics + + + | Address | [address] | | | [place] [address] | + + + | Home Phone | | + + + | Preferred Language | Unknown | + + + | Marital Status | | + + + | Mandaen Affiliation | Unknown | + + + | Race | Unknown | + + + | Ethnic Group | Unknown | + + + Author + + + | Author | [facility] | + + + | Organization | [facility] | + + + | Address | Unknown | + + + | Phone | Unavailable | + + + Support + + +---------+ + | Name | Relationship | Address | Phone | + + +---------+ + | Ry Ding | ECON | Unknown | | + + +---------+ + Care Team Providers + +------+ + | Care Automotive Internet Sales Manager Name | Role | Phone | + [...] | [employer] | ODS | [id number] | | | | | | HEALTH [...] | | al/Huan | | 1959 | [phone] | [place] | | | augie | | | [address]: | [address] | | | | | | | | | | | | | [phone] | | | | | | | [address] | | + +--------+ +--------+ + +"
[~2018-05-19 15:38] MED LIST changes: +HYDROCHLOROTHIA25 MG PO; +LOSARTAN POTASS50 MG PO
[2018-05-19] MEDS ORDERED: LIPITOR10 MG PO (15:46)
[2018-05-19] MEDS ORDERED: ASPIRIN81 MG PO (15:46)
== END 2018-05-19 16:48 | disposition home or self-care (01) ==
LOC: ED 15:38
DX: M25.572 Pain in left ankle and joints of left foot (principal)

== ENCOUNTER 2022-09-26 20:29 | Emergency (ER) | payer OTHER ==
[~2022-09-26] VITALS: Ht 172.7 cm; Wt 84.4 kg
[~2022-09-26 20:29] MED LIST changes: +ASPIRIN81 MG PO; +LIPITOR10 MG PO
[2022-09-26] MEDS ORDERED: CARVEDILOL25 MG PO (20:45)
[2022-09-26] MEDS ORDERED: HYDRALAZINE HCL10 MG PO (22:54)
== END 2022-09-26 23:00 | disposition home or self-care (01) ==
LOC: ED 20:29
DX: I10 Essential (primary) hypertension (principal); Z88.8 Allergy status to other drugs, medicaments and biological substances; Z79.899 Other long term (current) drug therapy; Z79.82 Long term (current) use of aspirin
CPT/HCPCS: 36415; 70450; 80053; 80061; 85025; 96374; 96376; 99284-25